=== PATIENT | male | born 1965 | race Caucasian/White ===

== ENCOUNTER 2017-04-11 09:26 | Emergency (ER) | payer OTHER ==
[2017-04-11] MEDS: MECLIZINE 12.5 MG TAB PO (13:03)
[2017-04-11] MEDS: ONDANSETRON (ODT) 4 MG TAB ODT (13:03)
== END 2017-04-11 14:47 | disposition home or self-care (01) ==
LOC: FTE 09:26
DX: R42 Dizziness and giddiness (principal)
CPT/HCPCS: 82962; 93005; 99283-25